=== PATIENT | female | born 1985 | race Two or more races ===

== ENCOUNTER → 2017-12-27 | Outpatient (CLI) | payer OTHER | END | disposition home or self-care (01) | LOC: MSC 12:45 | PROVIDERS: ATTEND Anesthesiology | DX: M51.36 Other intervertebral disc degeneration, lumbar region (principal); M51.26 Other intervertebral disc displacement, lumbar region; M47.817 Spondylosis without myelopathy or radiculopathy, lumbosacral region; M25.9 Joint disorder, unspecified; M50.20 Other cervical disc displacement, unspecified cervical region; M47.812 Spondylosis without myelopathy or radiculopathy, cervical region ==

== ENCOUNTER 2018-01-31 14:00 | Outpatient (CLI) | payer BC | END 2018-01-31 23:59 | disposition home or self-care (01) | LOC: MSC 14:00 | PROVIDERS: ATTEND Anesthesiology | DX: M51.36 Other intervertebral disc degeneration, lumbar region (principal); M47.817 Spondylosis without myelopathy or radiculopathy, lumbosacral region; M47.812 Spondylosis without myelopathy or radiculopathy, cervical region; M25.9 Joint disorder, unspecified ==